=== PATIENT | female | born 1990 | race African-American/Black ===

== ENCOUNTER 2019-11-26 17:48 | Emergency (ER) | payer MEDICAID ==
--- NOTE | 2019-11-26 18:32 | EDM.PDOC ---
ED HPI GENERAL MEDICAL PROBLEM - General Chief Complaint: Respiratory Problem Stated Complaint: LIGHT HEADED,S.O.B. Time Seen by Provider: 11/26/19 18:20 Source of Information: Reports: Patient History Limitations: Reports: No Limitations - History of Present Illness INITIAL COMMENTS - FREE TEXT/NARRATIVE: 29-year-old female who is 28 weeks gestation , call the clinic to tell them that she was having some increased shortness of breath with activity over the past month to 2 months, and intermittent periods of diaphoresis. No fevers or chills, no cough, no pain, no persistent peripheral edema or urinary symptoms. She was sent to the emergency room because "she might have COVID". She arrives completely stable with normal vitals. She is not concerned about COVID, she is more concerned about preeclampsia, they are also following her because the baby is small for gestational age Onset: Gradual Duration: Week(s): (Symptoms have been mild but slowly worsening over the past 8 weeks) Associated Symptoms: Reports: Diaphoresis, Shortness of Breath. Denies: Confusion, Chest Pain, Cough, Fever/Chills, Malaise - Related Data Allergies Allergy/AdvReac Type Severity Reaction Status Date / Time Penicillins Allergy Hives Verified 11/26/19 18:13 Home Meds: Home Meds Albuterol [Ventolin HFA] 1 - 2 puff IN ASDIRECTED PRN 11/26/19 [History] Past Medical History Respiratory History: Reports: Asthma INSURANCE CLAIM AUDITOR History: Reports: , Other (See Below) Other INSURANCE CLAIM AUDITOR History: Lost baby 2019 states she had her water broke to early. Hematologic History: Reports: Anemia Social & Family History - Tobacco Use Smoking Status *Q: Never Smoker - Caffeine Use Caffeine Use: Reports: Soda - Recreational Drug Use Recreational Drug Use: No ED ROS GENERAL - Review of Systems Review Of Systems: See Below Constitutional: Denies: Fever, Chills HEENT: Reports: No Symptoms Respiratory: Reports: Shortness of Breath (With activity) Cardiovascular: Denies: Chest Pain, Palpitations GI/Abdominal: Denies: Abdominal Pain, Nausea, Vomiting Skin: Reports: No Symptoms Neurological: Denies: Headache ED EXAM, GENERAL - Physical Exam Exam: See Below Exam Limited By: No Limitations General Appearance: Alert, No Apparent Distress Eye Exam: Bilateral Eye: Normal Inspection Head: Atraumatic Neck: Non-Tender Respiratory/Chest: Lungs Clear Cardiovascular: Regular Rate, Rhythm, No Murmur. No: Tachycardia GI/Abdominal: Soft, Other (Patient is carrying a 28-week gestation ) Extremities: Normal Inspection, No Pedal Edema Neurological: Alert, Oriented Psychiatric: Normal Affect, Normal Mood Course - Vital Signs Last Recorded V/S: Last Vital Signs Temp 97.0 F 11/26/19 18:13 Pulse 64 11/26/19 18:13 Resp 16 11/26/19 18:13 BP 104/73 11/26/19 18:13 Pulse Ox 99 11/26/19 18:13 - Orders/Labs/Meds Orders: Active Orders 24 hr Category Date Time Status CULTURE URINE [RM] Stat Lab 11/26/19 18:00 Received Labs: Laboratory Tests 11/26/19 Range/Units 18:43 Urine Color Yellow (YELLOW) Urine Appearance Slightly cloudy A (CLEAR) Urine pH 7.5 (5.0-8.0) Ur Specific [place] 1.020 (1.008-1.030) Urine Protein Trace H (NEGATIVE) mg/dL Urine Glucose (UA) Negative (NEGATIVE) mg/dL Urine Ketones Trace H (NEGATIVE) mg/dL Urine Occult Blood Negative (NEGATIVE) Urine Nitrite Negative (NEGATIVE) Urine Bilirubin Negative (NEGATIVE) Urine Urobilinogen 0.2 (0.2-1.0) EU/dL Ur Leukocyte Esterase Small H (NEGATIVE) Urine RBC Not seen (0-5) Urine WBC 10-20 H (0-5) Ur Epithelial Cells Moderate Amorphous Sediment Not seen Urine Bacteria Many Urine Mucus Not seen - Re-Assessments/Exams Free Text/Narrative Re-Assessment/Exam: 11/26/19 18:31 A UA will be obtained to look for proteinuria, but I reassured the patient that with normal blood pressure, normal pulse, 99% oxygen saturations on room air and no peripheral edema without symptoms of headache that she looks very healthy. 11/26/19 19:16 UA showed some bacteria and white cells but just a trace of proteinuria. I discussed this with her primary OB provider, urine culture was obtained but no treatment will provided until culture results. She has a recheck with Lilia Parker on Sunday. Departure - Departure Time of Disposition: 19:22 Disposition: Home, Self-Care 01 Clinical Impression: Shortness of breath, Bacteriuria during - Discharge Information Instructions: Shortness of Breath, Adult, [id number] Referrals: Lilia Gonzales CNM [Primary Care Provider] - Forms: ED Department Discharge Care Plan Goals: Activity as tolerated, continue any medications, and recheck on Sunday as scheduled. Sepsis Event Note (ED) - Evaluation Sepsis Screening Result: No Definite Risk - Focused Exam Vital Signs: Vital Signs Temp Pulse Resp BP Pulse Ox 11/26/19 18:13 97.0 F 64 16 104/73 99 11/26/19 18:09 97.0 F 64 16 104/73 99 - My Orders Last 24 Hours: My Active Orders 11/26/19 18:00 CULTURE URINE [RM] Stat - Assessment/Plan Last 24 Hours: My Active Orders 11/26/19 18:00 CULTURE URINE [RM] Stat
== END 2019-11-26 19:22 | disposition home or self-care (01) ==
LOC: JP.ED 17:48
DX: O99.89 Other specified diseases and conditions complicating pregnancy, childbirth and the puerperium (principal); R06.02 Shortness of breath; R82.71 Bacteriuria; O99.512 Diseases of the respiratory system complicating pregnancy, second trimester; J45.909 Unspecified asthma, uncomplicated; Z88.0 Allergy status to penicillin; Z3A.28 28 weeks gestation of pregnancy
CPT/HCPCS: 81001; 87086; 99284